=== PATIENT | male | born 2000 | race Caucasian/White ===

== ENCOUNTER 2019-08-03 21:49 | Emergency (ER) | payer BC ==
[2019-08-03 22:20] VITALS: BP 115/66; PULSE 86; TEMP 98.7; BMI 27.1
[2019-08-03] MEDS ORDERED: IBUPROFEN 400 MG TABLET (FP) PO ONE (22:20)
--- NOTE | 2019-08-03 23:00 | PDOC ---
Documentation entered by aRdha Brothers SCRIBE, acting as scribe for Milton Geiger MD. Milton Geiger MD: This documentation has been prepared by the tiffanyibe, Radha Brothers SCRIBE, under my direction and personally reviewed by me in its entirety. I confirm that the documentation accurately reflects all work , treatment, procedures, and medical decision making performed by me. History of Present Illness - General Chief Complaint: Injury Stated Complaint: ANKLE INJURY Time Seen by Provider: 08/03/19 21:53 History Source: Patient Exam Limitations: No Limitations - History of Present Illness Initial Comments: 08/03/19 22:21 This is a 18-year-old male who comes in complaining of right ankle pain post twisting his ankle during a soccer game. Patient is unable to bear weight and denies any other injuries however. Patient denies any history of similar episodes or injuries to that ankle in the past. Patient did not take anything for the pain.. Allergies: as per nursing notes Past Medical History: none Social history: Lives with family. No smoking. No alcohol. No illicit drugs. Surgical history: None General: No fevers or chills, no weakness, no weight loss HEENT: No change in vision. No sore throat,. No ear pain CardioVascular: no chest discomfort. No shortness of breath Respiratory:No cough, or wheezing. Gastrointestinal: no nausea, vomiting, diarrhea or constipation, No rectal bleeding Genitourinary: No dysuria, hematuria, or frequency Musculoskeletal: No joint or muscle pain or swelling Neurologic: No headache, vertigo, dizziness or loss of consciousness Psychiatric: nor depression Skin: No rashes or easy bruising Endocrine: no increased thirst or abnormal weight change Allergic: no skin or latex allergy All other systems reviewed and normal GENERAL: The patient is awake, alert, and fully oriented, in no acute distress. HEAD: Normal with no signs of trauma. EYES: Pupils equal, round and reactive to light, extraocular movements intact, sclera anicteric, conjunctiva clear. EXTREMITIES: Right ankle: There is moderate swelling over the lateral malleolus with some tenderness on palpation. There is no tenderness on palpation of the base of the fifth metatarsal. Neurovascular distally is intact. There is decreased range of motion secondary to the pain. NEUROLOGICAL: Normal speech, normal gait. PSYCH: Normal mood, normal affect. SKIN: Warm, Dry, normal turgor, no rashes or lesions noted. X-ray: 08/03/19 22:58 No acute fracture dislocation x-ray reviewed by me Assessment and plan: This is a 18-year-old male with right ankle pain patient had an x-ray that was negative for any acute pathology. Patient given Luis wrap and crutches and discharged with and will follow-up with Dr. Johnson Past History - Past Medical History Allergies/Adverse Reactions: Allergies Allergy/AdvReac Type Severity Reaction Status Date / Time No Known Allergies Allergy Verified 08/03/19 22:36 Home Medications: Ambulatory Orders NK [No Known Home Medication] 08/03/19 Discharge - Discharge Information Problems reviewed: Yes Clinical Impression/Diagnosis: Moderate right ankle sprain Qualifiers: Encounter type: initial encounter Qualified Code(s): S93.401A - Sprain of unspecified ligament of right ankle, initial encounter Condition: Good Disposition: HOME - Admission No - Follow up/Referral Referrals: Max Long MD [Staff Physician] - - Patient Discharge Instructions Additional Instructions: Take ibuprofen 6 to 800 mg 3 times a day with food do not take on an empty stomach. Use your crutches as needed for ambulation it is okay to bear weight as tolerated. Rest ice elevate and you wear your Luis wrap. Follow-up with Dr. Long Return to the emergency department immediately with ANY new, persistent or worsening symptoms. Continue any medications as previously prescribed by your physician. You should follow up with your primary doctor as soon as possible regarding today's emergency department visit. . Please make sure your doctor reviews the results of your emergency evaluation. Thank you for coming to the Emergency Department today for your care. It was a pleasure to see you today. Please note that your evaluation is INCOMPLETE until you follow-up with your doctor. - Post Discharge Activity
== END 2019-08-03 23:14 | disposition home or self-care (01) ==
LOC: FER 21:49
DX: S93.401A Sprain of unspecified ligament of right ankle, initial encounter (principal); X58.XXXA Exposure to other specified factors, initial encounter; Y93.66 Activity, soccer; Y92.322 Soccer field as the place of occurrence of the external cause
CPT/HCPCS: 73610-TC-RT-FY; 99281-25